=== PATIENT | female | born 1940 | race Caucasian/White ===

== ENCOUNTER 2020-11-22 09:00 | Observation (INO) | payer MEDICARE, OTHER ==
[~2020-11-22] VITALS: Ht 157.5 cm; Wt 78.2 kg
[~2020-11-22 09:00] MED LIST: ASPIRIN EC325 MG PO; BRIMONIDINE TART5 ML OPTH; CEPHALEXIN500 MG PO; DOXYCYCLINE MO100 M1 PO; FUROSEMIDE40 MG PO; LETROZOLE2.5 MG PO; METOPROLOL SUCC25 MG PO; NORCO 5-325 TA1 EACH PO; PERCOCET 5-3251 EACH PO; POTASSIUM CHLO10 MEQ PO; TRAVATAN Z5 ML OPTH; ULTRAM50 MG PO; VITAMIN D31000 UNIT PO
[2020-11-22] MEDS ORDERED: VITAMIN A AND1 EACH PO (09:22)
--- NOTE | 2020-11-22 15:48 | NUR ---
11/22/20 1548 Ani Betancur 1529-PATIENT ARRIVED TO PACU ON 6L MASK NONAROUSABLE. RR EVEN. ORAL AIRWAY IN PLACE. PATIENT HAS DRESSING TO LEFT NECK AND LEFT BREAST CDI. [address] AFIB HR 160'S. BRUISING TO LEFT EYE. 1530-PATIENT OPENING EYES ORAL AIRWAY REMOVED BY PORSHA MANTILLA. 1535-PATIENT REACHING FOR BLANKETS AND MASK. PATIENT DISORIENTED. ORIENTED TO PACU. PATIENT WANTING TO SIT UP. HOB ELEVATED PATIENT BURPING. PORSHA MANTILLA GAVE ESMOLOL FOR HR 160'S-170'S. PATIENT NAUSEATED "IM GONNA THROW UP" PATIENT MEDICATED PER EMAR WITH ZOFRAN IVP. NEW ORDER RECEIVED FROM PORSHA TO GIVE METOPROLOL 5 MG IVP PRN EVERY 15MIN X2 FOR HR GREATER THAN 120. ALSO RECEIVED ORDER FOR INAPSINE. 1545-PATIENT ON 2L NC AWAKE ORIENTED X3. HR DECREASED TO 111 AFIB.
--- NOTE | 2020-11-22 16:40 | NUR ---
ARRIVES FROM PACU ON CART, ASSIST TO BED. REMAINS ON O2 2L/MIN PER NASAL CANULA. DECREASED TO 1 LITER/MIN DUE TO O2 SATS 98%. SCD'S IN PLACE AND TURNED ON. ASSESSMENT COMPLETED. MASTECTOMY INCISION NOTED TO HAVE APPROXIMATELY 5 CM EXPOSED, GAUZE PLACED OVER SITE AND SECURED WITH SILK TAPE. MODERATE AMOUNT OF DRAINAGE TO MEDIAL HANY DRAIN SITE. TUBING STRIPPED.
--- NOTE | 2020-11-22 17:21 | NUR ---
TELEMETRY APPLIED, TACHYCARDIC WITH RATES UP TO 138, IRREGURLAR RATE, HISTORY OF A-FIB. DR. ZENG NOTIFIED. TELEPHONE ORDERS DR. ZENG/ Pamella PISANO RN, TO GIVE METOPROLOL 5MG IV X1 NOW, STRIP TUBING FOR LEAKING DRAIN AND COVER EXPOSED AREA OF INCISION WITH GAUZE.
--- NOTE | 2020-11-22 18:46 | NUR ---
PT SITTING UP IN BED EATING DINNER. TELE SHOWED HR FROM 130-187, DR ZENG ON FLOOR. GIVEN PRN LOPRESSOR AND RESTARTED ON PO LOPRESSOR.
--- NOTE | 2020-11-22 18:48 | NUR ---
SITTING UP TO EAT SUPPER, HEARTRATE INCREASES TO 190'S. DR. ZENG ON FLOOR, AWARE, SEE ORDERS.
--- NOTE | 2020-11-22 19:10 | NUR ---
IN ROOM FOR REPORT, PT HAS VISITORS IN THE ROOM. SHE DENIES NEEDS AT THIS TIME. CALL LIGHT IS CLOSE.
--- NOTE | 2020-11-22 20:03 | NUR ---
TOOK LAST SET OF PT'S VS. SHE DENIES NEEDS AT THIS TIME AND HAS VISITORS IN THE ROOM. CALL LIGHT IS CLOSE.
--- NOTE | 2020-11-22 22:45 | NUR ---
V/S AND I&O'S TAKEN AND CHARTED. BLAKES DRAINAGE X2 EMPTIED. CHANGED TELE STICKER. 1 PA TO THE BATHROOM AND BACK TO BED. PRIMARY RN WAS WITH PATIENT.
--- NOTE | 2020-11-22 23:05 | NUR ---
COMPLETED ASSESSMENT AND ADMINISTRATION OF EVENING MEDICATIONS. ZACK NGO IN ROOM ASSISITING WITH VS AND EMPTYING DRAINS. PT TAUGHT DRAIN CARE BY BOTH OF US AND STATES "YOU WILL NEED TO SHOW MY DAUGHTER". PT SAYS HER DAUGHTER WILL BE BACK IN TOMORROW. WHILE PT UP TO RESTROOM HER HEART RATE JUMPED TO HIGH 172 AND JUMPED AROUND. PT DENIES ANY SX WITH INCREASED HR. SHE IS BACK IN BED AND HR DECREASED BACK TO LOWER 100'S. PT REPORTS PAIN AT 1/10 AT THIS TIME. SHE HAS SCDS IN PLACE AND REFUSED HEPARIN INJ. PT UP TO VOID 125MLS BUT STATES SHE DOESN'T FEEL THE URGE TO GO. PT DENIES FURTHER NEEDS AT THIS TIME. CALL LIGHT IS CLOSE.
--- NOTE | 2020-11-23 01:35 | NUR ---
PT IS RESTING WITH EYES CLOSED RR IS EVEN AND NONLABORED. CALL LIGHT IS CLOSE. HR 84.
--- NOTE | 2020-11-23 02:49 | NUR ---
IN ROOM TO ADMINISTER LOPRESSOR AND CHECK PT'S VS. SHE DENIES PAIN AT THIS TIME AND DENIES FURTHER NEEDS. CALL LIGHT IS CLOSE.
--- NOTE | 2020-11-23 03:00 | NUR ---
PT DOES NOT FEEL THE NEED TO VOID, SINTA WOMEN SPECIALIST BLADDER SCANNED AND GOT 293MLS. PT IS MAKING URINE AND LUNGS SOUND CLEAR. WILL HAVE PT GET UP IN AM TO VOID.
--- NOTE | 2020-11-23 04:14 | NUR ---
PT IS RESTING WITH EYES CLOSED, RR IS EVEN AND NONLABORED. CALL LIGHT IS CLOSE.
--- NOTE | 2020-11-23 05:51 | NUR ---
IN ROOM TO ADMINISTER MORNING MEDICATIONS. PT REPORTS 0/10 PAIN AND DOES NOT WANT THE TYLENOL. SHE DENIES FURTHER NEEDS. AT THIS TIME CALL LIGHT IS CLOSE.
--- NOTE | 2020-11-23 07:15 | NUR ---
SHIFT REPORT FROM NURSE LEAHY. PT ASLEEP IN BED WITH EYES CLOSED. EVEN BREATHING NOTED. NO APPARENT SIGNS OF DISTRESS. CALL LIGHT WITHIN REACH.
--- NOTE | 2020-11-23 08:12 | NUR ---
PATIENT AWAKE IN BED SITTING UP. BREAKFAST ORDERED. CALL LIGHT WITHIN REACH NO FUTHER NEEDS AT THIS TIME.
--- NOTE | 2020-11-23 09:14 | NUR ---
PATIENT I&O'S DOCUMENTED AND VITALS SIGNS. PATIENT SITTING IN CHAIR CALL LIGHT WITHIN REACH NO FUTHER NEEDS AT THIS TIME.
--- NOTE | 2020-11-23 09:23 | NUR ---
ASSESSMENT COMPLETE. PT REFUSING SQ HEPARIN. PT EDUCATED ON INCREASED RISK OF CLOTS POST OP, HOWEVER PT IS ADAMANT ABOUT NOT WANTING HEPARIN DOSE. HANY DRAINS HAVE MINIMAL -MODERATE AMOUNT OF SERO TO SANGUINOUS DISCHARGE. INCISION BANDAGE SOME SHADOWING ALTHOUGH INTACT. SUPRACLAVICULAR DRESSING CDI. BLE EDEMA. SCDS ON. TELE READING AFIB RHYTHM AT 90-100. PT REPORTS NO PAIN. ENCOURAGED PT TO AMBULATE TODAY. FRESH ICE PROVIDED. CALL LIGHT WITHIN REACH.
--- NOTE | 2020-11-23 09:30 | NUR ---
Pt lives in a 1 story home with her spouse. Daughter is staying this week and will return home on Saturday. Lives with her spouse Mesfin who will assist her as needed. Pt states concern as she has drains in and wanted to know if she can have HH as she did in the past when she had drains. Informed I will leave a note for Dr. Watters. Pt is milagros yan to dc today. Pt and family deny needs and will assist pt.
--- NOTE | 2020-11-23 10:41 | NUR ---
TRIAL WALKING HEART REGULATION; PT AMBULATED IN HALLS WITH SBA. PT HR FLUCTUATED BETWEEN 130-170. PT REPORTS FEELING "A LITTLE" SHORT OF BREATH AND FEELING THE HR ELEVATED. PT ALSO REPORTS THAT SHE WAS "WALKING PRETTY FAST". DR ZAMBRANO INFORMED. PT TO REMAIN HERE LONGER TO ADJUST MEDICATIONS.
--- NOTE | 2020-11-23 10:59 | NUR ---
EDUCATION TO PT'S DAUGHTER ON HOW TO EMPTY HANY DRAINS. HANY#1 5CC SANGUINOUS DRAINAGE WITH SOME CLOTTING. HANY#2 18CC SANGUINOUS FLUID DRAINED.
--- NOTE | 2020-11-23 11:22 | NUR ---
CALLED CANCER CLINIC AND TALKED TO REYNALDO REGARDING BREAST CARE STUFF. SHE WILL BE DOWN AT NOON TO SHOW PT HOW TO PUT ON HER GARRETT. PT AWARE.
--- NOTE | 2020-11-23 12:04 | NUR ---
IN ROOM TO SL PT. FAMILY STILL IN ROOM. PT EATING LUNCH; REQUESTS DECAF TEA INSTEAD OF REGULAR TEA WHICH IS PROVIDED. NO FURTHER NEEDS AT THIS TIME.
--- NOTE | 2020-11-23 14:43 | NUR ---
VITAL SIGNS DOCUMENTED BY THE RN AND I&O'S. CALL LIGHT WITHIN REACH NO FUTHER NEEDS AT THIS TIME.
--- NOTE | 2020-11-23 18:02 | NUR ---
PATIENT TALKING TO FAMILY IN THE ROOM I&O'S DONE BY SPIKE MAKER AND VITAL SIGNS DONE BY THE RN. CALL LIGHT WITHIN REACH NO FUTHER NEEDS AT THIS TIME.
--- NOTE | 2020-11-23 19:10 | NUR ---
IN ROOM FOR REPORT, PT IS AWAKE IN BED. SHE DENIES NEEDS AT THIS TIME. CALL LIGHT IS CLOSE.
--- NOTE | 2020-11-23 20:00 | NUR ---
in with rn to get vitals, ice water topped off no further needs this time
--- NOTE | 2020-11-23 20:17 | NUR ---
IN ROOM TO ASSESS PT AND ADMINISTER MEDICATIONS. PT DENIES PAIN AT THIS TIME OTHER THAN A LITTLE SORE THROAT. DRAIN #1 KEEPS INFLATING, FIXED IT TO SUCTION AGAIN. VS TAKEN AND ENTERED AND PT DENIES FURTHER NEEDS AT THIS TIME. CALL LIGHT IS CLOSE.
--- NOTE | 2020-11-23 22:35 | NUR ---
ADMINISTERED THE REST OF PT'S EVENING MEDICATIONS. SHE REPORTS A SORE THROAT BUT DENIES OTHER PAIN. TAUGHT PT DRAIN CARE AND EMPTIED HANY DRAINS. SHE DENIES FURTHER NEEDS AT THIS TIME. PT STATES SHE JUST VOIDED BEFORE SHIFT CHANGE AND DOES NOT WANT TO TRY GOING AT THIS TIME. WILL REASSESS AT 0200 WHEN PT'S NEXT MEDS ARE DUE.
--- NOTE | 2020-11-24 01:02 | NUR ---
PT IS RESTING WITH EYES CLOSED, RR IS EVEN AND NONLABORED W/ HR AT 65 AT THIS TIME. CALL LIGHT IS CLOSE.
--- NOTE | 2020-11-24 02:05 | NUR ---
IN TO HAVE PT UP TO VOID, SBA TO THE TOILET, PT BACK TO BED AND BP MEASUREMENT TAKEN FOR RN, ICE CHIPS TOPPED OF AT THIS TIME, NO FURTHER NEEDS
--- NOTE | 2020-11-24 02:09 | NUR ---
IN ROOM TO ADMINISTER MEDS. ELDA RIVERA ASSISTED PT TO THE RESTROOM AND BACK TO BED. WHILE PT WAS UP HER HR DID INCREASE BUT THE HIGHEST PT'S HR GOT WAS ABOUT 115. SHE DENIES SOB, PAIN AND LIGHT HEADEDNESS. PT DENIES FURTHER NEEDS AT THIS TIME. CALL LIGHT IS CLOSE.
--- NOTE | 2020-11-24 03:50 | NUR ---
PT IS RESTING WITH EYES CLOSED, TELE HR CURRENTLY 56. LOWESTS THIS RN HAS SEEN IT WAS 53 WHILE SLEEPING.
--- NOTE | 2020-11-24 04:49 | NUR ---
PT IS RESTING WITH EYES CLOSED, RR IS EVEN AND NONLABORED. HR BRIEFLY DROPPED TO 36 IN A-FIB BUT QUICKLY RETURNED TO 40'S TO 60'S.
--- NOTE | 2020-11-24 07:00 | NUR ---
IN ROOM TO ADMINISTER MEDICATIONS AND TAKE VS &I&O'S. PT REPORTS 5/10 PAIN THIS MORNING IN L SHOULDER AND UPPER ARM. PT DENIES FURTHER NEEDS AT THIS TIME. CALL LIGHT IS CLOSE.
--- NOTE | 2020-11-24 07:29 | NUR ---
SHIFT REPORT FROM NURSE LEAHY. PT APPEARS TO BE SLEEPING; EYES CLOSED, EVEN BREATHING NOTED. TELE HR 60S. NO APPARENT SIGNS OF DISTRESS. CALL LIGHT WITHIN REACH.
--- NOTE | 2020-11-24 08:33 | NUR ---
ASSESSMENT COMPLETE. MORNING MEDS GIVEN. PT CONTINUES TO REFUSE HEPARIN INJECTION. PT REQUESTS PRN STOOL SOFTENER; WILL DISCUSS WITH DR ZENG. BREAST BANDAGE SCANT DRAINAGE; UNCHANGED FROM YESTERDAY. CLAVICULAR BANDAGE CDI. HANY DRAINS SEROUS COLORED DISCHARGE; MINIMAL. BLE EDEMA CONTINUES. TELE HR 70-80S. PT GOT UP TO TOILET. HR WENT TO 105. PT FINISHED ENTIRE BREAKFAST. ON TOILET NOW. NO FURTHER NEEDS AT THIS TIME.
--- NOTE | 2020-11-24 10:00 | NUR ---
Pt seen by Dr. Watters. Notified does not feel pt will require Home Health. Spoke with pt and she cont. to plan on dc to home with daughter and spouse. States she is just hesitant, she also feels she will be ok without HH. Reminded if she has issues at home, HH can always be ordered through her PCP or Dr. Watters.
[2020-11-24] MEDS ORDERED: METOPROLOL SUCC50 MG PO (10:46)
[2020-11-24] MEDS ORDERED: DILTIAZEM 24HR180 M1 PO (10:46)
[2020-11-24] MEDS ORDERED: ACETAMINOPHEN500 MG PO (10:56)
[2020-11-24] MEDS ORDERED: MOTRIN IB200 MG PO (10:56)
--- NOTE | 2020-11-24 11:20 | NUR ---
IN TO CHECK ON PT. PT IS SITTING UP BEDSIDE. DR ZENG HAD REMOVED GAUZE AND ACTICOAT DRESSING. TELE LEADS REMOVED.
--- NOTE | 2020-11-24 11:39 | NUR ---
IN ROOM FOR DISCHARGE EDUCATION. PT'S IN ROOM WELL. PT SITTING UP IN BED AND TOOK PART EDUCTAION. PT WILL EAT LUNCH BEFORE SHE GOES HOME.
--- NOTE | 2020-11-24 12:35 | NUR ---
PT WHEELED TO FRONT LOBBY DOOR AND HELPED INTO HER DAUGHTER'S CAR BY THIS NURSE. PT'S ASSISTING WELL. VSS. PT'S BELONGINGS GIVEN TO PT. PHARMACY HAD GONE OVER MEDS WITH PT. IV REMOVED INTACT.
--- NOTE | 2020-11-25 17:32 | OR ---
[facility] [address], [place] [address] Signed DATE OF OPERATION: 11/22/2020 SURGEON: Gladys Zeng MD PREOPERATIVE DIAGNOSES: 1. 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 2. Left supraclavicular adenopathy. POSTOPERATIVE DIAGNOSES: 1. 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 2. Left supraclavicular adenopathy. PROCEDURE: 1. Excision of left supraclavicular lymph node. 2. Left modified radical mastectomy (a total mastectomy with excision of remaining lymph node). ANESTHESIA: General endotracheal, Cristi Saamno CRNA. INDICATION: This 80-year-old white woman is a patient recently of Dr. Lorenz as well as JOVANY Duran. She was diagnosed with breast cancer in the mid 90s and had recurrence in the left breast of breast cancer approximately 5 years ago. As her original operation included a lumpectomy, chemotherapy, radiation therapy, and at least partial axillary dissection of lymph nodes. I had recommended upon her recurrent breast cancer in the upper outer aspect 5 years ago to undergo total mastectomy. She declined and preferred rather to have a partial mastectomy. This was done by Dr. Marlena León in [place], [place]. She did not have adjuvant radiation or chemotherapy, though has been on an oral agent since that time. She recently returned to see Dr. Lorenz in followup, where she was said to have multiple nodules of the skin and dermis, and a very deformed breast highly suggestive of recurrent breast cancer. Additionally, a palpable left supraclavicular lymph node was noted that is suspicious. The patient does not have arm edema at this time. I did perform a biopsy in the office setting under local anesthesia a few days previously, which showed an obvious recurrent metastatic breast cancer. Electronically Signed By: GLADYS ZENG MD 11/25/20 0803 PATIENT NAME: SOPHIE BALDERAS OPERATIVE REPORT DATE OF : 44 REPORT #: [id number] PHYSICIAN: GLADYS ZENG MD PCP: BENITO LORENZ MD REPORT IS CONFIDENTIAL AND NOT TO BE RELEASED WITHOUT AUTHORIZATION [facility] [address], [place] [address] Signed She is admitted at this time to undergo left modified radical mastectomy (total mastectomy with axillary dissection as able). Additionally, through separate incision, left supraclavicular lymph node biopsy is anticipated. FINDINGS: The left supraclavicular lymph node was approximately 2.5 cm in size. It was firm, but not hard. Complete excision was undertaken. As regard to the breast, dermal metastases were rather extensive requiring much wider than usual resection of skin in continuity with the breast tissue. This was accomplished safely and with elevation of superior and inferior flaps, the wound could be closed fully without need for grafting or elaborate measures otherwise. Two drains were placed. As regards, the tumor itself was palpable within the dense breast and there were some residual lymph nodes associated with the axillary tissue, though there were clips from prior axillary intervention also noted. She tolerated the procedure well overall, though did have atrial fibrillation throughout the procedure as usual and did have rapid ventricular response to it in recovery room, which was managed with medications effectively. DESCRIPTION OF PROCEDURE: The patient was brought to the operating room, given a general endotracheal anesthetic. Preoperative antibiotics were given, sequential compression device stockings used, and heparin subcutaneously administered. The patient has a very large pendulous right breast and the left breast was smaller, but definitely quite obviously involved with malignant neoplasm of both parenchyma and skin. There was no sign of generalized erythema or inflammation proper otherwise. After sterile preparation with a chlorhexidine solution on the left chest wall and arm and so forth including the supraclavicular space. The area was sterilely draped and plans were made for excision of the left supraclavicular lymph node first. A transverse incision was made along the line of skin tension, dissection carried through the dermis with blunt and electrocautery dissection ultimately palpating well the pathologic lymph node which was not fixed but rather mobile, but in the deep subcutaneous space adjacent to the muscle of the neck and various neurologic structures. A single 2-0 silk suture was passed through the nodule, which allowed for excision of the nodule in continuity with the suture. Electrocautery was used for hemostasis well. The wound was irrigated with sterile water for its tumor lytic effect. The specimen was passed for permanent pathology. The wound was closed in layers with interrupted 2-0 Vicryl and later running subcuticular 3-0 Vicryl. Steri-Strips were applied as was a silver sponge dressing (Acticoat type). The attention was then turned towards mastectomy proper. As there were multiple metastatic lesions within the skin distributed most dominantly in Electronically Signed By: GLADYS ZENG MD 11/25/20 1732 PATIENT NAME: SOPHIE BALDERAS OPERATIVE REPORT DATE OF : 44 REPORT #: [id number] PHYSICIAN: GLADYS ZENG MD PCP: BENITO LORENZ MD REPORT IS CONFIDENTIAL AND NOT TO BE RELEASED WITHOUT AUTHORIZATION [place] [id number] Signed the medial aspect, wide excision would be required to provide a clinically negative margin based on recurrent cancer. The wide resection included all the pathologic findings of the skin, leaving only normal tissue back at least grossly. An incision was made with a #15 blade and carried deeply with electrocautery. Superior and inferior flaps were developed and mostly using electrocautery. The breast was excised from medial to lateral direction using electrocautery and blunt dissection. Axillary contents were excised in continuity with the axillary tail of Zach. There were a few clips noted in the axilla suggestive of prior sentinel lymph node biopsy. The axillary vein and neurovascular bundles were dissected free excised as much axillary fat with lymph nodes as could be safely accomplished. Clips were applied as necessary for hemostasis as well. A few intercostal brachial neurovascular bundles were clipped and divided as the parenchyma did not accommodate dissection of those freely otherwise. Ultimately, the entire left breast and axillary contents were excised and passed for permanent pathology. Irrigation was undertaken with sterile water for its tumor lytic effect, two separate stab incisions were made allowing for placement of two 10 mm flat Shamar drains, one beneath the flaps and the other in the axilla. The drains were secured to the skin with nylon suture and attached to bulb suction later. Initially, it was uncertain if the edges of the skin would reach to allow for closure of the wound primarily. Superior and inferior dissection was undertaken with electrocautery, mobilizing the superior flaps, certainly the superior one up to and including the area of the clavicle and inferiorly well down onto the abdominal wall including the rectus abdominis muscular compartment. Traumatic towel clamps were used to reapproximate the skin initially and good viability was noted particular medially and laterally and generally speaking in the midportion. Interrupted 2-0 Vicryl was used to reapproximate the dermis. The skin was closed with running subcuticular 3-0 Vicryl. Steri-Strips were applied as was an Acticoat dressing. The drains had been set up to bulb suction shows serosanguineous fluid. The patient was ultimately extubated and transferred to the recovery room in good condition having suffered no complications. Sponge, needle, and instrument counts were correct x3. MD GUNNER Shell/MICKIL /[id number] Electronically Signed By: GLADYS ZENG MD 11/25/20 1732 PATIENT NAME: SPOHIE BALDERAS OPERATIVE REPORT DATE OF : 44 REPORT #: [id number] PHYSICIAN: GLADYS ZENG MD PCP: BENITO LORENZ MD REPORT IS CONFIDENTIAL AND NOT TO BE RELEASED WITHOUT AUTHORIZATION [facility] [address] [facility] [place] [address] Signed Copies: ~ Electronically Signed By: GLADYS ZENG MD 11/25/20 1732 PATIENT NAME: SOPHIE BALDERAS OPERATIVE REPORT DATE OF : 44 REPORT #: [id number] PHYSICIAN: GLADYS ZENG MD PCP: BENITO LORENZ MD REPORT IS CONFIDENTIAL AND NOT TO BE RELEASED WITHOUT AUTHORIZATION
--- NOTE | 2020-11-25 17:32 | DS ---
[facility] [address] [place], [place] [address] Signed ADMISSION DATE: 11/22/2020 DISCHARGE DATE: 11/24/2020 REASON FOR ADMISSION: This 80-year-old white woman is a patient of Kiesha Rebolledo and additionally Dr. Benito Lorenz. She is admitted to undergo left mastectomy related to a second recurrence of breast cancer in the left upper outer quadrant. There were dermal metastases noted as well. Her original malignancy was in 1988 at which time she underwent a lumpectomy as well as chemo and radiation therapy. Five years ago she had a local recurrence in the left breast and elected elsewhere to undergo lumpectomy alone. Her recurrence now does show signs of probable metastatic disease to the supraclavicular lymph node area. She is admitted to undergo a left mastectomy, left axillary lymphadenectomy as possible and excision separately of the left supraclavicular lymph node. PHYSICAL EXAMINATION: GENERAL: Elderly white woman who has atrial fibrillation. Trachea is midline. CHEST: Clear. HEART: Irregularly irregular. There is no murmur. The right breast is very pendulous and is normal. Axilla was normal on the left side. There is a pendulous breast with marked deformity from prior interventions. There is no palpable axillary adenopathy. No specific arm edema. A left supraclavicular lymph node is suspicious and the left breast shows multiple skin nodules, one of which was biopsied recently and confirmed to be infiltrating ductal carcinoma. HOSPITAL COURSE: On November 22, 2020, she underwent left total mastectomy with excision of residual axillary lymph node tissue. Through separate incision, she underwent excision of a left supraclavicular lymph node which was suspicious for metastatic disease as well. She tolerated the operation well with blood loss not particularly excessive. Two drains were placed. She was noted in recovery room to have atrial fibrillation with rapid ventricular response requiring administration of metoprolol. She was admitted for further observation as planned, but with telemetry as well. Consultation was undertaken with Dr. Levy, hospitalist, regarding her rapid ventricular response to underlying atrial fibrillation. This was managed with increasing doses of metoprolol and ultimately Cardizem, which has allowed for good control of her heart rate into the 65-70 range and with good tolerance. By time of discharge she is ambulating without initiating significant tachycardia. She understands how to use her drains to measure each and maintain suction on the drains. Electronically Signed By: GLADYS ZENG MD 11/25/20 1733 PATIENT NAME: SOPHIE BALDERAS DISCHARGE SUMMARY DATE OF : 44 REPORT #: [id number] PHYSICIAN: GLADYS ZENG MD PCP: BENITO LORENZ MD REPORT IS CONFIDENTIAL AND NOT TO BE RELEASED WITHOUT AUTHORIZATION [facility] [address] [place] [id number] Signed Her wound appears to be healing well though wide resection of skin was required and closure was under some amount of tension. It is anticipated she will be seen in 7 to 10 days, likely able to have one or more of the drains removed. DISCHARGE MEDICATIONS: 1. Metoprolol extended release 50 mg p.o. at bedtime. 2. Diltiazem 24 hour CD 180 mg p.o. at bedtime. 3. Tylenol 1 g p.o. q.6 hours as needed for pain #60 refill one. 4. Motrin 600 mg p.o. q.6 hours p.r.n. pain #60. She will continue with the usual medication of aspirin 325 mg p.o. daily. 5. Letrozole 2.5 mg p.o. daily. 6. Brimonidine 5 mL drops for the eye as needed for pain. 7. Vitamin D3 1000 units daily. 8. Vitamin A and D one capsule p.o. daily. 9. She will discontinue Lasix 40 mg daily, metoprolol 25 mg extended release daily, and potassium chloride 10 meq p.o. daily. DISCHARGE DIAGNOSES: 1. Second recurrence of left breast cancer with multiple dermal metastases, status post left total mastectomy, axillary dissection and excision through separate incision of left supraclavicular lymph node. 2. Atrial fibrillation. 3. Atrial fibrillation with rapid ventricular response postop. (Resolved and controlled). FOLLOWUP PLAN: She is going to be seeing Kiesha Rebolledo in the near future who is anticipated to set up the consideration for Holter monitoring. Dr. Levy has discussed this with her office. She will see me back in 7 to 10 days for drain removal most likely. She will additionally be seeing Dr. Lorenz in the near future additionally. MD GUNNER Shell/GENESIS /[id number] Electronically Signed By: GLADYS ZENG MD 11/25/20 1732 PATIENT NAME: SOPHIE BALDERAS DISCHARGE SUMMARY DATE OF : 44 REPORT #: [id number] PHYSICIAN: GLADYS ZENG MD PCP: BENITO LORENZ MD REPORT IS CONFIDENTIAL AND NOT TO BE RELEASED WITHOUT AUTHORIZATION [facility] [address] [place] [address] Signed cc: MD David Mendoza MD Danielle Addleman, PA-C Copies: BENITO LORENZ MD,DAVID LI MD ~ Electronically Signed By: GLADYS ZENG MD 11/25/20 1732 PATIENT NAME: SOPHIE BALDERAS DISCHARGE SUMMARY DATE OF : 44 REPORT #: [id number] PHYSICIAN: GLADYS ZENG MD PCP: BENITO LORENZ MD REPORT IS CONFIDENTIAL AND NOT TO BE RELEASED WITHOUT AUTHORIZATION
--- NOTE | 2020-11-30 09:09 | PATH ---
[facility] [address] [facility] [place], [place] [address] Signed SPECIMEN(S): A LEFT SUPRACLAVICULAR LYMPH NODE SPECIMEN(S): B LEFT BREAST, AXILLARY CONTENT REMNANT SPECIMEN SOURCE: A. LEFT SUPRACLAVICULAR LYMPH NODE B. LEFT BREAST, AXILLARY CONTENT REMNANT CLINICAL HISTORY: Local recurrence of malignant breast tumor. Stitch angeles axillary content remnant. FINAL PATHOLOGIC DIAGNOSIS: A. 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 - Size of metastatic deposit: 22 mm in greatest dimension. - Extra gabby extension: Not identified. B. 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 - Histologic type: Invasive carcinoma of no special type (ductal). - Histologic grade ([place] histologic score): - Glandular (acinar)/tubular differentiation: Score 3. - Nuclear pleomorphism: Score 3. - Mitotic rate: Score 3. - Overall grade: Grade 3 (total score 9/9). - Ductal carcinoma in situ (DCIS): Not identified. - Tumor extension: - Skin: Satellite skin foci of invasive carcinoma are present. - Skeletal muscle: Skeletal muscle is free of carcinoma. - Margins: - Invasive carcinoma margins: Uninvolved by invasive carcinoma. - Distance from closest margin: > 1 cm from all margins (superior, inferior, deep). - Regional lymph nodes: Involved by tumor cells (ipsilateral supraclavicular node, specimen A). - Number of lymph nodes with macrometastasis: 1. - Size of largest metastatic deposit: 22 mm. - Extra gabby extension: Not identified. - Total number of lymph nodes examined: 1. PATIENT NAME: SOPHIE PETERSEN PATHOLOGY DATE OF : 44 REPORT #: [id number] PHYSICIAN: ALEJANDROQuintiles PATHOLOGY PCP: BENITO LORENZ MD REPORT IS CONFIDENTIAL AND NOT TO BE RELEASED WITHOUT AUTHORIZATION [facility] [address] [place], [place] [address] Signed - Number of sentinel nodes examined: 0. - Treatment effect in the breast: No known pre-surgical therapy. - Lymphovascular invasion: Present. - Dermal lymphovascular invasion: Present, extensive. - Ancillary studies: Please refer to previously performed testing ([id number], interpreted as ER negative, MD negative, HER2 negative by IHC, and Ki-67 proliferation index of 84.6%. - Additional findings: Post surgical site changes, radiation changes. - Pathologic stage classification (pTNM, AJCC 8th ed.): r pT4b pN3c. COMMENT: The clinical history of left breast invasive carcinoma status post lumpectomy in 1997 with recurrence in 2015 status post lumpectomy and radiation therapy is noted. The left mastectomy specimen contains a 5.7 cm tumor as well as multiple satellite foci of invasive carcinoma within the skin associated with extensive dermal lymphovascular invasion. Areas of radiation atypia and post-surgical site changes are identified within the breast, coinciding with the history of prior lumpectomies and radiation atypia. No residual axillary lymph nodes were identified grossly. As part of [facility]' Quality Improvement Program, this case was reviewed by another member of our pathology staff. NAL:cml:C1NR MICROSCOPIC EXAMINATION: Histologic sections of all submitted blocks are examined by light microscopy. Immunohistochemical stains (with appropriately staining controls) were performed: B2. CD31 highlight the multiple foci of tumor within dermal lymphovascular spaces; SMMHC and p63 confirm the absence of definitive DCIS in that section. These findings, together with the gross examination, support the pathologic diagnosis. GROSS DESCRIPTION: Two specimens are received in two containers, labeled "Sophie Petersen." A. The specimen, labeled "Sophie Petersen," and designated on the requisition "left subclavicular lymph node," is received in formalin and consists of 3.5 x 2.6 x 1.5 cm portion of yellow-nugent adipose tissue that contains one pink possible lymph node that is a 2.6 x 1.8 x 0.9 cm. PATIENT NAME: SOPHIE PETERSEN PATHOLOGY DATE OF : 44 REPORT #: [id number] PHYSICIAN: MELVIN LUNA PCP: BENITO LORENZ MD REPORT IS CONFIDENTIAL AND NOT TO BE RELEASED WITHOUT AUTHORIZATION [facility] [address] [place] [id number] Signed The lymph node is grossly positive for tumor (2.2 x 1.8 x 0.8 cm), which occupies approximately 80% of the lymph node. Approximately dairy supplies sales representative sections are submitted in cassette (A1). FB (under the direct supervision of a pathologist) B. The specimen, labeled "MH," and designated on the requisition "left breast, axillary contents remnant," is received in a low amount of formalin and consists of 1040 g, 17.6 18.4 x 5.4 cm mastectomy specimen that is oriented with a suture at the axillary content remnant. A portion of the specimen, a 9.2 x 6.1 x 0.8 cm piece, is ragged and loosely attached by three strands. It is assumed that the surface of the piece that is parallel to the posterior surface is posterior and the remaining surface is superior. The assumedly posterior surface is inked black and the assumedly superior surface is inked blue. (See image). The anterior portion of the specimen contains a 26.1 x 21.1 cm nugent skin segment. The skin segment has multiple, raised, focal, nugent to purple nodules from 0.2 up to 2.5 cm in greatest dimension. The nodules are surrounded by wrinkled, slightly purple discolored skin. The majority of the nodules are in two clusters. The first cluster is 3.6 x 3.2 cm and 1.2 cm from the nearest skin margin, superior. The second cluster is 20.2 x 11.2 cm, and 0.6 cm from the nearest margin, inferior. The second cluster contains the ill-defined, nodular, pink-nugent, 6.2 x 4.5 cm areola, and a 1.5 x 1.5 x 0.7 cm firm, nugent nipple. Additionally within the second cluster is a 1.7 x 0.7 cm nodular area containing multiple black synthetic sutures and 2.6 cm from the nearest margin, superior. An additional discrete mass/lesion is not grossly identified on the skin surface. The specimen is inked as follows: Superior aspect of the specimen = blue; inferior aspect of the specimen = green; posterior = black. The specimen is sectioned from [id number] into 18 slices to reveal an ill-defined, nugent-white, indurated, 5.7 x 3.7 x 3.2 cm lesion (slice 8-13) that is directly beneath and grossly appears to involve the nipple. Additionally, the lesion grossly appears to involve the overlying skin. The lesion is 2.7 cm from the inferior margin, 2.7 cm from the deep margin, and 9.4 cm from the superior margin. The lesion has many fibrous spiculations and focal cavities containing nugent-white, thick, opaque pasty material and up to 1.3 cm in greatest dimension. An additional parenchymal mass/lesion PATIENT NAME: SOPHIE PETERSEN PATHOLOGY DATE OF : 44 REPORT #: [id number] PHYSICIAN: MELVIN LUNA PCP: BENITO LORENZ MD REPORT IS CONFIDENTIAL AND NOT TO BE RELEASED WITHOUT AUTHORIZATION [facility] [address] [place], [place] [address] Signed is not grossly identified. The remaining parenchyma is comprised of yellow fibrofatty and nugent-white fibroglandular tissue. Fibroglandular tissue comprises approximately 5% of the remaining parenchyma. The lateral portion of the specimen is palpated for lymph nodes and no lymph nodes are grossly identified. Security Rover sections are submitted as follows: B1 nipple areolar complex B2-B3 first cluster to nearest superior margin (the sections are taken prior to cross-sectioning and the underlying tissue is inked red; (slices 6-7) B4-B5 second cluster to nearest superior margin (sections are taken prior to cross-sectioning and the underlying tissue is inked yellow; (slices 1-4) B6-B7 second cluster to nearest deep inferior margin (sections are taken prior to cross-sectioning and the underlying tissue is inked yellow (slices 1-4) B8 lesion to skin and areola (slice 8) B9 lesion to normal parenchyma (slice 9) B10 lesion cavity (slice 11) B11 nearest deep margin to lesion (slice 9) B12 nearest inferior margin to lesion (slice 9) B13 nearest superior margin to lesion (slice 9) B14 lesion with fibrous spiculations (slice 8) B15 lesional fibrous spiculations to nearest margin, inferior, 1.4 cm away piece (slice 11) B16-B20 second cluster nodular areas of skin (slice 12, 7, 6, 4, 3 respectively; B20 contains the sutured nodular area) B21 first cluster nodular areas (slice 6) B22-B23 dairy supplies sales representative of remaining parenchyma (slice 5 and 17 respectively) Cold ischemic time: Grossly indeterminate due to lack of information Formalin fixation time: Approximately 52 hours Note: please see images AI (under the direct supervision of a pathologist) The Gross Description was prepared using a voice recognition system. The report was reviewed for accuracy; however, sound-alike word errors, addition and/or deletions may occur. If there is any question about this report, please contact Client Services. ADDITIONAL NOTES: Immunohistochemical and/or in situ hybridization studies were performed on this case with the appropriate positive controls that react as expected. This test was developed and its performance characteristics determined by [facility]. It has not been cleared or PATIENT NAME: SOPHIE PETERSEN PATHOLOGY DATE OF : 44 REPORT #: [id number] PHYSICIAN: MELVIN LUNA PCP: BENITO LORENZ MD REPORT IS CONFIDENTIAL AND NOT TO BE RELEASED WITHOUT AUTHORIZATION [address] [address] Signed approved by the U.S. Food and Drug Administration. The FDA has determined that such clearance or approval is not necessary. This test is used for clinical purposes. It should not be regarded as investigational or for research. [facility] is certified under the Clinical Laboratory Improvement Amendments of 1988 (CLIA) as qualified to perform high complexity clinical laboratory testing. This assay has not been validated for specimens that have been decalcified. PERFORMING LABORATORY: The technical component was performed by [facility], [address] [place] [address] (Curriculum Developer: Anahy Wilson MD; CLIA# [id number]).Professional [place] [address] (CLIA# [id number]). Diagnostician: Ember Reeves MD Pathologist Electronically Signed 11/30/2020 Copies: ~ PATIENT NAME: SOPHIE PETERSEN PATHOLOGY DATE OF : 44 REPORT #: [id number] PHYSICIAN: MELVIN PATHOLOGY PCP: BENITO LORENZ MD REPORT IS CONFIDENTIAL AND NOT TO BE RELEASED WITHOUT AUTHORIZATION
== END 2020-11-24 12:30 | disposition home or self-care (01) ==
LOC: MS 09:00 → DS 09:00 → MS 16:40 → DS 16:41 → MS 16:42
PROVIDERS: ADMIT Surgery; ATTEND Surgery
PROC: 0HTU0ZZ Resection of Left Breast, Open Approach (ICD-10-PCS; principal; 2020-11-22 10:30)
DX: C50.412 Malignant neoplasm of upper-outer quadrant of left female breast (principal); C79.2 Secondary malignant neoplasm of skin; R59.9 Enlarged lymph nodes, unspecified; I48.91 Unspecified atrial fibrillation; I50.22 Chronic systolic (congestive) heart failure; I10 Essential (primary) hypertension; Z88.1 Allergy status to other antibiotic agents; Z88.8 Allergy status to other drugs, medicaments and biological substances; Z92.21 Personal history of antineoplastic chemotherapy; Z92.3 Personal history of irradiation; Z87.891 Personal history of nicotine dependence; Z79.82 Long term (current) use of aspirin
CPT/HCPCS: 00404; 36415; 80048; 80053; 83735; 85025; 88305; 88307; 88341; 88342; 96374; 96375; 96376; G0378; J0690; J1100; J1644; J1790; J1885; J2001; J2370; J2405; J2704; J3010; J3475; J7121; Q9968

== ENCOUNTER 2021-06-05 18:31 | Emergency (ER) | payer MEDICARE, OTHER ==
[~2021-06-05] VITALS: Ht 154.9 cm; Wt 67.6 kg
[~2021-06-05 18:31] MED LIST changes: +ACETAMINOPHEN500 MG PO; +CALTRATE 600 +1 EAC1 PO; +DILTIAZEM 24HR180 M1 PO; +K-TAB ER20 MEQ PO; +METOPROLOL SUCC50 MG PO; +MOTRIN IB200 MG PO; +VITAMIN A AND1 EACH PO
[2021-06-05] MEDS ORDERED: LYNPARZA100 MG PO (18:51)
[2021-06-05] MEDS ORDERED: METOPROLOL SUCC25 MG PO (18:52)
[2021-06-05] MEDS ORDERED: COMBIGAN EYE DRO5 ML OD ×2 (18:54)
== END 2021-06-05 22:30 | disposition home or self-care (01) ==
LOC: ED 18:31
DX: U07.1 COVID-19 (principal); Z85.3 Personal history of malignant neoplasm of breast; Z85.828 Personal history of other malignant neoplasm of skin; Z87.891 Personal history of nicotine dependence; Z88.1 Allergy status to other antibiotic agents; Z79.82 Long term (current) use of aspirin; Z79.899 Other long term (current) drug therapy
CPT/HCPCS: 71045; 80053; 85007; 85025; 99284-25; C9803; M0243; Q0244; U0003

== ENCOUNTER 2021-09-12 06:08 | Observation (INO) | payer MEDICARE, OTHER ==
[~2021-09-12] VITALS: Ht 154.9 cm; Wt 68.9 kg
--- NOTE | ~2021-09-12 | DS ---
[facility] [address] [place], [place] [address] Draft ADMISSION DATE: 09/12/2021 DISCHARGE DATE: 09/14/2021 REASON FOR ADMISSION: The patient is here to undergo right palliative mastectomy and excision of large axillary metastatic tumor burden for symptomatic congestive right-sided mastopathy. PERTINENT PHYSICAL EXAMINATION: GENERAL: Pleasant white woman, who is somewhat frail overall. CHEST: Shows prior left mastectomy without sign of local recurrence or significant left arm edema. Right breast shows massive enlargement and edema with a very large palpable mass in the axillary tail of Serrano extending to the axilla consistent with extensive axillary disease. ABDOMEN: With poor muscle tone, but soft and nontender. HOSPITAL COURSE: She underwent a right modified radical mastectomy with extended lymphadenectomy and placement of drains. The right supraclavicular adenopathy was not addressed on this occasion. Her postoperative course was rather unremarkable. She was immediately consulted by Occupational and Physical Therapy specialist to fit an edema sleeve on the right side and subsequently on the left side. Other methods of avoidance of lymphedema given her underlying problem were explored as well. By the time of discharge, she is ambulating well, tolerating regular diet, understands well wound care, drain management and has lymphedema sleeve on left and right side. FOLLOWUP PLAN: She is to return to see me in approximately three weeks or sooner if her wound drainage should be less than 30 mL in a day to two days in a row. DISCHARGE MEDICATIONS: Her discharge medications will include: 1. Motrin 600 mg p.o. q.6 hours as needed for pain, #30. 2. Oxycodone 5 mg one p.o. q.6 hours as needed for pain, #10. 3. Tylenol plain 1000 mg p.o. q.6 hours p.r.n. pain, #60. She will continue with these medications including vitamins A and D, Lasix 40 mg p.o. daily. We will do b.i.d. for one week given her peripheral edema otherwise. 1. Potassium chloride 20 mEq p.o. b.i.d. for one week and then daily went back to normal Lasix dose. 2. Metoprolol 25 mg p.o. daily. PATIENT NAME: SOPHIE BALDERAS DISCHARGE SUMMARY DATE OF : 44 REPORT #: [id number] PHYSICIAN: GLADYS ZENG MD PCP: JOSE LOVELL PAC REPORT IS CONFIDENTIAL AND NOT TO BE RELEASED WITHOUT AUTHORIZATION [facility] [address] [place], [place] [address] Draft 3. Combigan eyedrops one drop, right eye each day. 4. Calcium carbonate and vitamin D3 one tablet p.o. daily. 5. Aspirin 81 mg p.o. daily. DISCHARGE DIAGNOSES: 1. Severe congestive right-sided mastopathy with extensive axillary and tumor involvement related to contralateral breast cancer metastasis. 2. History of left recurrent breast cancer x3, status post ultimately extended left mastectomy with axillary dissection. 3. Status post right modified radical mastectomy with resection of extensive tumor burden of right axilla and placement of drains. MD GUNNER Shell/MODL /[id number] cc: Almaz Mccormack MD, PH.D. JOVANY Duran MD Nathalie Johnson, MD Copies: ALMAZ MCCORMACK,DONAVAN HAHN MD, MD ~ PATIENT NAME: SOPHIE BALDERAS DISCHARGE SUMMARY DATE OF : 44 REPORT #: [id number] PHYSICIAN: GLADYS ZENG MD PCP: JOSE LOVELL PAC REPORT IS CONFIDENTIAL AND NOT TO BE RELEASED WITHOUT AUTHORIZATION
--- NOTE | ~2021-09-12 | OR ---
[facility] [address] [place], [place] [address] Draft DATE OF OPERATION: 09/12/2021 SURGEON: Gladys Zeng MD PREOPERATIVE DIAGNOSES: 1. Recurrent right axillary extensive breast cancer with subsequent obstructive severe mastopathy of right breast. 2. History of left breast cancer with multiple recurrence. 3. Right supraclavicular adenopathy. POSTOPERATIVE DIAGNOSES: 1. Recurrent right axillary extensive breast cancer with subsequent obstructive severe mastopathy of right breast. 2. History of left breast cancer with multiple recurrence. 3. Right supraclavicular adenopathy. PROCEDURE: Right palliative modified radical mastectomy with extensive axillary lymph node dissection, prolonged, complicated and difficult. ANESTHESIA: General endotracheal, Sapna Kaur CRNA INDICATIONS: This 81-year-old white woman is a patient of Kiesha Lovell. She has a number of years history of treatment for left-sided breast cancer culminating in the left mastectomy having had local recurrence including dermal metastasis several months ago. She had developed contralateral lymph node drainage to the right side. She had recurrence of bulky adenopathy on the right side and has recently developed a massively swollen right breast related to this. She does not have proper. Notably, her primary tumor was "triple negative." She has been given various chemotherapeutic regimens under the direction of Dr. Garcia through a right jugular Port-A-Cath device. As she had no clinical response to most recent chemotherapeutic regimen, Dr. Garcia has recommended and I concur with salvage right mastectomy and debulking of right axilla as much as possible. Radiation therapy is anticipated by Dr. Toth at conclusion of this. The risks of bleeding, infection, vascular injury most particularly nerve injury and other unforeseen complications related to extensive resection was reviewed with her. She understands and wished to proceed. PATIENT NAME: SOPHIE BALDERAS OPERATIVE REPORT DATE OF : 44 REPORT #: [id number] PHYSICIAN: GLADYS ZENG MD PCP: KIESHA LOVELL PAC REPORT IS CONFIDENTIAL AND NOT TO BE RELEASED WITHOUT AUTHORIZATION [facility] [address] [place], [place] [address] Draft FINDINGS: The breast was massively edematous, but not infected in any way. Bulky tumor was noted in the axillary tail of Serrano extending to the apex of the axilla. The adenopathy extended to the subclavian vein quite obviously and meticulous dissection along the subclavian vein freed nearly all of the adenopathy completely. There were two branches of the thoracodorsal nerve, one of which was preserved, the other which was incorporated and resected. The bulky tumor was impressive and likely the congested mastopathy was related to lymphatic congestion dominantly as an axillary vein itself was not in fact compressed though tumor was certainly nearly contiguous with it. At conclusion, the mass of breast has been removed as has been the axillary contents. A very bulky tumor which extended beneath the pectoralis and up to the . Supraclavicular lymph nodes were not excised on this occasion today. DESCRIPTION OF PROCEDURE: The patient was brought to the operating room, given a general endotracheal anesthetic. A Manzo catheter was placed. The right breast, axilla and chest were prepared with a chlorhexidine solution and draped sterilely. Position of the right internal jugular Port-A-Cath device placed inferior and medial to the right clavicle was maintained in a safe position. A very heavy and bulky breast was supported and an elliptical incision was made extending through the dermis. Watery edema was noted throughout. Superior and inferior flaps were developed with primarily electrocautery dissection. Dissection was carried inferiorly and posteriorly and freeing the breast from the pectoralis muscle suturing large vessels with sutures as necessary and most dominantly cautery. The extensive size of the tumor was such that just the mastectomy portion was quite lengthy. In the axillary tail of Zach extending into the deep axilla was a large bulky firm mass. Extended beneath the pectoralis muscle and laterally to the latissimus dorsi. Dissection was begun beneath the pectoralis maintaining the tumor in continuity with the breast itself. Dissection was carried cephalad and extended to the very uppermost portion of the axilla. Various approaches to the tumor were undertaken to free it from the chest wall. The axillary vein was identified with fibrous capsule of the axillary contents it somewhat. Meticulous care was taken to avoid axillary vessel injury which would be quite easy to do given the extent of the tumor. With meticulous care, further dissection was undertaken deeply and superiorly ultimately identify the thoracodorsal neurovascular bundle. This was dissected free from the bulky tumor and adenopathy and preserved another such branch was noted but was contiguous with the tumor itself and was divided. Dissection medially, superiorly and posteriorly with great care ultimately freed entire bulk of the tumor, the axillary tail and the axillary lymph nodes. Palpably, at the apex of the axilla were possibly small lymph nodes, but no further dissection was deemed advisable into this area. The area was irrigated with sterile water for its tumor lytic effect. Two separate stab incisions were made to PATIENT NAME: SOPHIE BALDERAS OPERATIVE REPORT DATE OF : 44 REPORT #: [id number] PHYSICIAN: GLADYS ZENG MD PCP: KIESHA LOVELL PAC REPORT IS CONFIDENTIAL AND NOT TO BE RELEASED WITHOUT AUTHORIZATION [facility] [address] [place], [place] [address] 10 mm flat Shamar drains. Three separate syringes of Tisseel were used to cover the pectoralis flaps and the deep axilla. The drains were placed in usual position. The skin was then closed with interrupted 2-0 Vicryl. The lateral aspect with a bulky posterior axillary fold was remodeled with a T-plasty type incision. Redundant dog ears were excised additionally. Once the deep dermal layer was secured, a stapling device was used to further secure the skin. Two Acticoat dressings were applied and later OpSite dressings. The two drain sites were secured with additional nylon as there was a bit of a leak in the drains. This allowed for good occlusion. The patient was ultimately extubated and transported to the recovery room in good condition having suffered no known complications. Sponge, needle, and instrument counts were reported as correct x3. The operation was very prolonged, complicated, and difficult on the basis of bulkiness of the axillary adenopathy, but good benefit was obtained for resection. No additional dissection was undertaken in the supraclavicular space given the extent of dissection already undertaken and the placement and pathway of the internal jugular Port-A-Cath device. The operation was prolonged, complicated, and difficult lasting essentially 2.5 hours, three times longer than usual at least. MD GUNNER Shell/MICKIL /[id number] Copies: ~ PATIENT NAME: SOPHIE BALDERAS OPERATIVE REPORT DATE OF : 44 REPORT #: [id number] PHYSICIAN: GLADYS ZENG MD PCP: KIESHA LOVELL PAC REPORT IS CONFIDENTIAL AND NOT TO BE RELEASED WITHOUT AUTHORIZATION
[~2021-09-12 06:08] MED LIST changes: +CALCIUM + D3 E1 EACH PO; +COMBIGAN EYE DRO5 ML OD; +DORZOLAMIDE 2%10 ML OP; +FEMARA2.5 MG NG; +LORAZEPAM2 MG PO; +LYNPARZA100 MG PO; +ONDANSETRON ODT8 MG PO; +SENEXON-S 50-81 EACH PO; +TYLENOL EXTRA500 MG PO
[2021-09-12] MEDS ORDERED: OXYCONTIN10 MG PO (06:36)
[2021-09-12] MEDS ORDERED: OXYCODONE HCL5 MG PO (13:14)
[2021-09-12] MEDS ORDERED: CEPHALEXIN500 MG PO (13:15)
[2021-09-12] MEDS ORDERED: ASPIRIN325 MG PO (13:31)
[2021-09-12] MEDS ORDERED: IBUPROFEN200 MG PO (13:32)
--- NOTE | 2021-09-12 17:25 | OR ---
[facility] [address] [place] [address] Signed DATE OF OPERATION: 09/12/2021 SURGEON: Gladys Zeng MD PREOPERATIVE DIAGNOSES: 1. Right congestive mastopathy with bulky axillary adenopathy and tail of Serrano mass. 2. Right supraclavicular adenopathy. 3. History of left-sided breast cancer with multiple recurrences. POSTOPERATIVE DIAGNOSES: 1. Right congestive mastopathy with bulky axillary adenopathy and tail of Serrano mass. 2. Right supraclavicular adenopathy. 3. History of left-sided breast cancer with multiple recurrences. PROCEDURE: Right extended modified radical mastectomy prolonged, complicated and difficult with level three axillary dissection. ANESTHESIA: General endotracheal, Sapna Kaur CRNA. DRAINS: 10 mm flat Shamar x2. INDICATION: This 81-year-old white woman is a patient of Kiesha Lovell and has a complex past medical history of breast cancer on the right side. MD GUNNER Shell/MODL /[id number] Electronically Signed By: GLADYS ZENG MD 09/12/21 1725 PATIENT NAME: SOPHIE BALDERAS OPERATIVE REPORT DATE OF : 44 REPORT #: [id number] PHYSICIAN: GLADYS ZENG MD PCP: KIESHA LOVELL PAC REPORT IS CONFIDENTIAL AND NOT TO BE RELEASED WITHOUT AUTHORIZATION [place] [address] [place], [place] [address] Signed Copies: ~ Electronically Signed By: GLADYS ZENG MD 09/12/21 1725 PATIENT NAME: SOPHIE BALDERAS OPERATIVE REPORT DATE OF : 44 REPORT #: [id number] PHYSICIAN: GLADYS ZENG MD PCP: KIESHA LOVELL PAC REPORT IS CONFIDENTIAL AND NOT TO BE RELEASED WITHOUT AUTHORIZATION
[2021-09-14] MEDS ORDERED: OXYCODONE HCL5 MG PO (11:16)
[2021-09-14] MEDS ORDERED: IBUPROFEN600 MG PO (11:16)
[2021-09-14] MEDS ORDERED: ACETAMINOPHEN500 MG PO (11:16)
--- NOTE | 2021-09-25 14:26 | PATH ---
[facility] [address] [place], [place] [address] Signed THIS IS AN ADDENDUM REPORT SPECIMEN(S): A RIGHT BREAST AND AXILLARY CONTENTS SPECIMEN SOURCE: A. 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 FINAL PATHOLOGIC DIAGNOSIS: Breast and axillary contents, right, radical mastectomy: - Metastatic ductal carcinoma with soft tissue extension of the axillary tail, see Comment. - Overall tumor mass size: 16.7 x 14.5 x 9.2 cm. - Lymphovascular invasion: Present, extensive. - Dermal lymphovascular invasion: Not identified. - Breast biomarkers: - Estrogen Receptor: Negative, less than 1% of tumor cells with weak staining. - Progesterone Receptor: Negative, 0% of tumor cell staining. - Sparse background breast parenchyma, negative for in situ carcinoma. - Margins: Metastatic/invasive carcinoma focally present at ragged superior margin. - Deep margin: Less than 1 mm. - Inferior margin: Greater than 10 mm. 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 The current right radical mastectomy specimen demonstrates a bulky tumor mass within the axillary tail/upper outer quadrant with extensive associated lymphovascular invasion and soft tissue extension. Grossly, the tumor is comprised of several well-circumscribed masses. Microscopically, many of the tumor nodules are surrounded by a capsule and areas compatible with residual lymph node parenchyma are identified. Two smaller lymph nodes are identified adjacent to this bulky mass, one demonstrating complete replacement by tumor. Histologically, the PATIENT NAME: SOPHIE BALDERAS PATHOLOGY DATE OF : 44 REPORT #: [id number] PHYSICIAN: MELVIN PATHOLOGY PCP: JOSE LOVELL PAC REPORT IS CONFIDENTIAL AND NOT TO BE RELEASED WITHOUT AUTHORIZATION [facility] [address], [place] [address] Signed tumor resembles the carcinoma present in the contralateral breast ([id number]). There is no in situ carcinoma identified in the sparse background breast tissue. Given the combined gross and microscopic features, this tumor mass is interpreted as representing several matted lymph nodes massively expanded by metastatic ductal carcinoma. Definitive number of lymph nodes involved cannot be determined. Extensive tumor necrosis is present, but it is difficult to determine if the necrosis is secondary to ischemia from large tumor size or chemotherapy treatment. As part of [employer] Quality improvement program, this case was reviewed by another member of our pathology staff. A diagnostic alert was initiated by Dr. Reeves on 09/25/21. NAL:cml:C1NR MICROSCOPIC EXAMINATION: Histologic sections of all submitted blocks are examined by light microscopy. These findings, together with the gross examination, support the pathologic diagnosis. Immunohistochemical stains (with appropriately staining controls) were performed to evaluate the tumor cells. The tumor is positive for CK7 and mammaglobin, confirming breast origin. TTF-1 is negative in the tumor cells. GROSS DESCRIPTION: A: [id number]_002 The specimen, labeled "MH, A," and designated on the requisition "right breast + axillary contents," is received in formalin and consists of a 2236.7 g, 20.2 x 24.6 x 6.4 cm mastectomy specimen that is unoriented. Grossly identifiable skeletal muscle is not seen. Extending from one aspect of the specimen is a ragged, previously incised, lobulated, rubbery to indurated, 16.7 x 14.5 x 9.2 cm area (see images) with multiple ragged defects. Per the op notes, the indurated area is the axillary tail. The indurated area is arbitrarily designated the axillary tail and the specimen is oriented as such. On the anterior surface of the specimen is a nugent-pink, wrinkled, grossly unremarkable, 42.1 x 28.9 cm skin ellipse with a centrally located, ill-defined, grossly unremarkable, nugent-pink, 5.5 x 5.3 cm areola and a nugnet, grossly unremarkable, 1.7 x 1.5 x 0.7 cm nipple. The PATIENT NAME: SOPHIE BALDERAS PATHOLOGY DATE OF : 44 REPORT #: [id number] PHYSICIAN: MELVIN LUNA PCP: JOSE LOVELL PAC REPORT IS CONFIDENTIAL AND NOT TO BE RELEASED WITHOUT AUTHORIZATION [facility] [address], [place] [address] Signed specimen is inked as follows: Superior aspect of the specimen = blue; inferior aspect of the specimen = green; posterior = black. The specimen is sectioned from lateral to medial into 15 slices to reveal an ill-defined, lobulated, ragged, 16.7 x 14.5 x 6.2 cm, nugent-white to dark red hemorrhagic, somewhat friable mass within the upper outer quadrant and involving the possible axillary tail. The mass is consistent with the previously mentioned indurated area. The mass grossly appears to involve the defects, the superior margin, and the deep margin. The mass is 2.2 cm from the skin, 4.5 cm from the inferior margin, and 16.9 cm from the nipple. The remaining parenchyma is comprised of yellow fibrofatty and nugent-white fibroglandular tissue without an additional discrete mass/lesion. Fibroglandular tissue comprises approximately 5% of the remaining parenchyma. Grossly definitive lymph node is not identified in the upper outer quadrant. Vehicle Cost Engineer sections are submitted as follows: A1-A2 lesion to superior and deep margin (slice 3) A3 lesion to deep margin (slice 6) A4 lesion to superior margin including ragged defect area (slice 6) A5 lesion including areas of hemorrhage (slice 5) A6 nearest skin to lesion (slice 6) A7 nearest inferior margin to lesion (slice 6) A8 nipple and areolar complex (slice 10) A9 upper outer quadrant (slice 8) A10 lower outer quadrant (slice 4) A11 upper inner quadrant (slice 12) A12 lower inner quadrant (slice 14) Cold ischemic time: One hour and 8 minutes per requisition form Formalin fixation time: Approximately 46 hours AI (under the direct supervision of a pathologist). Per request by Dr. Reeves, the case is revisited. Additional sections are submitted as follows: A13-A14 lesion to ragged, disrupted margin (slice one) A15 lesion to ragged, disrupted margin (slice 3) A16-A18 lesion to normal parenchyma (slice 4, 5, and 7 respectively) A19-A21 lesion (slice 5, 6, and 8 respectively) A22 skin (slice 5 and 8) A23 skin (slice 8 and 9) AI 09/19/21 6:55AM PATIENT NAME: SOPHIE BALDERAS PATHOLOGY DATE OF : 44 REPORT #: [id number] PHYSICIAN: MELVIN LUNA PCP: JOSE LOVELL PAC REPORT IS CONFIDENTIAL AND NOT TO BE RELEASED WITHOUT AUTHORIZATION [facility] [address], [place] [address] Signed The Gross Description was prepared using a voice recognition system. The report was reviewed for accuracy; however, sound-alike word errors, addition and/or deletions may occur. If there is any question about this report, please contact Client Services. ADDITIONAL NOTES: Immunohistochemical and/or in situ hybridization studies were performed on this case with the appropriate positive controls that react as expected. This test was developed and its performance characteristics determined by [facility] [facility]. It has not been cleared or approved by the U.S. Food and Drug Administration. The FDA has determined that such clearance or approval is not necessary. This test is used for clinical purposes. It should not be regarded as investigational or for research. [facility] is certified under the Clinical Laboratory Improvement Amendments of 1988 (CLIA) as qualified to perform high complexity clinical laboratory testing. This assay has not been validated for specimens that have been decalcified. PERFORMING LABORATORY: The technical component was performed by [facility], [address] [place] [id number] (Facility Service Associate: Anahy Wilson MD; CLIA# [id number]). [facility] [address] [address] (CLIA# [id number]). Block: A5. The cold ischemia time is 68 minutes. The fixative is 10% NBF. The length of fixation is 46 hours, meeting ASCO/CAP guidelines. Estrogen receptor clone SP1 and progesterone receptor clone 1E2 by [employer] [place], [place]. Detection: HRP Polymer Detection on the [employer] with appropriate controls. Nuclear immunoreactivity of 1% or greater is considered positive by ASCO/CAP 2020 guidelines. Internal control cells for ER are absent. Internal control cells for DC are absent. NAL:cml The technical component was performed by [facility], [address] [place] [id number] (Facility Service Associate: Anahy Wilson MD; CLIA# [id number]). Professional interpretation [facility], [address] [address] (CLIA# PATIENT NAME: SOPHIE BALDERAS PATHOLOGY DATE OF : 44 REPORT #: [id number] PHYSICIAN: MELVIN LUNA PCP: JOSE LOVELL PAC REPORT IS CONFIDENTIAL AND NOT TO BE RELEASED WITHOUT AUTHORIZATION [facility] [address], [place] [address] Signed [id number]). The technical and professional components were performed by [facility], [address] [place] [address] (Facility Service Associate: Clark Benitez D.O.; CLIA#: [id number]). REASON FOR ADDENDUM: To report results of additional testing. ADDENDUM PATHOLOGIC DIAGNOSIS: HER-2 protein by IHC, right breast and axillary contents: - Equivocal; IHC score 2+. ADDENDUM COMMENT: In view of the equivocal IHC result, reflex testing for HER-2 amplification by FISH has been ordered and will be reported by addendum. AIC:[facility] ADDENDUM MICROSCOPIC EXAMINATION: Block: A5. The fixation is 10% buffered formalin. The length of fixation is 46 hours, meeting ASCO/CAP guidelines. HER-2 protein expression by immunohistochemistry using the FDA-approved HER-2 Pathway [place] at the request of Dr. Ember Reeves. The assay has not been validated for decalcified specimens. Standardized batch control materials react appropriately. The presence of tumor is confirmed. Scoring is according to ASCO/CAP 2018 guidelines for breast HER-2 testing. This assay and scoring method are not specifically validated for tissue types other than breast. Weak to moderate complete membrane staining observed in greater than 10% of tumor cells; score 2+. PERFORMING LABORATORY: The technical and professional components were performed by [facility], [address] [place] [address] (Facility Service Associate: Clark Benitez D.O.; CLIA#: [id number]). REASON FOR ADDENDUM: To report results of additional testing. ADDENDUM PATHOLOGIC DIAGNOSIS: HER-2 gene by FISH, right breast and axillary contents: - Negative for amplification. GP:[facility] PATIENT NAME: SOPHIE BALDERAS PATHOLOGY DATE OF : 44 REPORT #: [id number] PHYSICIAN: MELVIN PATHOLOGY PCP: JOSE LOVELL PAC REPORT IS CONFIDENTIAL AND NOT TO BE RELEASED WITHOUT AUTHORIZATION [facility] [address], [place] [address] Signed ADDENDUM MICROSCOPIC EXAMINATION: Specimen type: Mastectomy. Block: A5. Cold ischemia time: 68 minutes. The fixation is 10% buffered formalin. The length of fixation is 46 hours, meeting ASCO/CAP guidelines. Scoring method: Manual. Fluorescence in situ hybridization (FISH) study (multiplex probe) for HER-2 gene amplification using the [employer] HER2 IQFISH pharmDx kit [place] The assay has not been validated for decalcified specimens. Scoring and interpretation is according to ASCO/CAP 2018 guidelines for breast HER-2 testing. This assay and scoring method are not specifically validated for tissue types other than breast. Controls were processed in the same batch as the patient and reacted appropriately. The patient's sample was considered adequate for interpretation. - Number of nuclei counted: 40 - Number of HER-2 signals counted: 85 - Number of CEP 17 signals counted: 88 - Average number of HER-2 signals per cell: 2.1 - Average number of CEP 17 signals per cell: 2.2. - HER-2:CEP 17 ratio: 1.0 Negative for HER-2 amplification (ratio less than 2.0 or average HER-2 signals per cell less than 4.0). Diagnostician: Ember Reeves MD Pathologist Diagnostician: Jesus Silva MD. MPH Pathologist Diagnostician: Rufina Melgar MD Pathologist Electronically Signed 09/25/2021 Copies: ~ PATIENT NAME: SOPHIE BALDERAS PATHOLOGY DATE OF : 44 REPORT #: [id number] PHYSICIAN: MELVIN LUNA PCP: JOSE LOVELL PAC REPORT IS CONFIDENTIAL AND NOT TO BE RELEASED WITHOUT AUTHORIZATION
== END 2021-09-14 13:22 | disposition home or self-care (01) ==
LOC: DS 06:08 → EDSTATUS 07:00 → MS 11:30 → DS 11:31 → MS 09-14 13:22
PROVIDERS: ADMIT Surgery; ATTEND Surgery
PROC: 0HTT0ZZ Resection of Right Breast, Open Approach (ICD-10-PCS; principal; 2021-09-12 07:00)
DX: C50.611 Malignant neoplasm of axillary tail of right female breast (principal); C77.3 Secondary and unspecified malignant neoplasm of axilla and upper limb lymph nodes; I89.0 Lymphedema, not elsewhere classified; J30.2 Other seasonal allergic rhinitis; E66.9 Obesity, unspecified; H40.9 Unspecified glaucoma; M19.90 Unspecified osteoarthritis, unspecified site; R06.02 Shortness of breath; I10 Essential (primary) hypertension; I48.91 Unspecified atrial fibrillation; R04.0 Epistaxis; Z17.1 Estrogen receptor negative status [ER-]; Z88.1 Allergy status to other antibiotic agents; Z88.8 Allergy status to other drugs, medicaments and biological substances; Z79.82 Long term (current) use of aspirin; Z68.33 Body mass index [BMI] 33.0-33.9, adult; Z86.16 Personal history of COVID-19
CPT/HCPCS: 00404; 80048; 85025; 88309; 88341; 88342; 88360; 88377; 96372; 96374; 96375; 96376; 97166; 97760; G0378; J0131; J0330; J0690; J1100; J1644; J1885; J1940; J2001; J2250; J2405; J2704; J7121

== ENCOUNTER 2021-10-17 05:58 | Inpatient (IN) | payer MEDICARE, OTHER ==
[~2021-10-17] VITALS: Ht 154.9 cm; Wt 67.3 kg
[~2021-10-17 05:58] MED LIST changes: +ASPIRIN325 MG PO; +COMBIGAN EYE DRO5 ML OU; +IBUPROFEN200 MG PO; +IBUPROFEN600 MG PO; -K-TAB ER20 MEQ PO; +OXYCODONE HCL5 MG PO; +OXYCONTIN10 MG PO; -VITAMIN A AND1 EACH PO; +VITAMIN A2400 MCG PO; +VITAMIN B-121000 MCG PO
--- NOTE | 2021-10-17 08:44 | NUR ---
DR ZENG HAD JUST LEFT WITH PT-GAVE HER SOME NEWS SHE DIDN'T WANT TO HEAR. WAS TRYING TO PROCESS-SPENT TIME ENCOURAGING HER AND FAMILY PRESENT. PT TRYING TO REMAIN POSITIVE, REQUESTED PRAYER. WILL FOLLOW NEEDED
[2021-10-17] MEDS ORDERED: OXYCODONE HCL5 MG PO (11:01)
[2021-10-17] MEDS ORDERED: IBUPROFEN600 MG PO (11:01)
[2021-10-17] MEDS ORDERED: OXYCODON-ACETA1 EAC2 PO (11:02)
[2021-10-17] MEDS ORDERED: ACETAMINOPHEN500 MG PO (11:02)
--- NOTE | 2021-10-17 11:32 | NUR ---
10/17/21 1132 Sheets,Marilynn 1023 PT ARRIVED TO PACU, PT REPORTS NAUSEA AND EMESIS BAG GIVEN. HOB INCREASED. 1028 NAUSEA MEDICATION GIVEN. COOL WASH CLOTHE TO FORHEAD AND CONTINUES TO DRY HEAVE. HEART RATE INCREASING, 160S. 1032 O2 DECREASED AND 4L NC PLACE. PT CONTINUES TO DRY HEAVE WITH INCREASING HEART RATE. ELECTRICAL TRYOUT PERSON NOTIFIED. HEART RATE NOTED AT 170 AND O2 INCREASING. PT DENIES PAIN OR DIZZINESS, "TUMMY" PT REPORTS NAUSEA. SCANT AMOUNT OF EMESIS NOTED, CLEAR AND TISSUE USE TO WHIPE FACE. 1038 ELECTRICAL TRYOUT PERSON AT BEDSIDE AND AT NEW ORDER RECEIVED. RN CONTINUES TO REMIND PT TO DEEP BREATHE. HEART RATE DECREASING, 110. 1041 NAUSEA MEDICATION GIVEN PER EMAR. 1044 O2 100 AND O2 DECREASED TO 2L. PT REPORT NAUSEA IS GETTING BETTER. PT RESTIN BACK IN BED AND HEART RATE DECREASING. 1050 ELECTRICAL TRYOUT PERSON CHECKING ON PT, NO NEW ORDERS. PT RESTING. O2 DECREASED TO 88% AND O2 INCREASED TO 3L. O2 INCREASED. 1120 MD AT BEDSIDE AND SMALL AMOUNT OF AIR NOTED UNDER DRESSING AND CHEST XRAY ORDERED. RIGHT ARM SWELLING NOTED AND MD AWARE. 1125 X-RAY AT BEDSIDE. PT SITS UP IN BED AND REPORT NAUSEA IS BETTER AND NO PAIN. O2 DECREASED 2L. 1130 PT ASLEEP OFF AND ON AND RN CONTINUES TO REMIND PT TO DEEP BREATHE.
--- NOTE | 2021-10-17 12:10 | NUR ---
Pt arrives to med surg floor, able to transfer self to bed, becomes tachycardic with movement to 170's, briefly sustained. Once at rest pt returns to 95-130's. Tele in place. Pt on 2L NC O2, spo2 99%. Dressing visualized C/D/I, [address], past surgical site on L breast visualized, well approximated with no signs infection.
--- NOTE | 2021-10-17 13:05 | NUR ---
Pt reports has not taken home dose of Metoprolol since Saturday.
--- NOTE | 2021-10-17 14:00 | NUR ---
Pt maintaining HR between 95-115 on tele #7.
--- NOTE | 2021-10-17 15:28 | NUR ---
Dr Watters notified regarding patient sustained HR >100, BP, and home metoprolol dosage. Verbal order received to administer home dose of 25mg metoprolol now and continue on home schedule. Order entered, awaiting pharmacy verification
--- NOTE | 2021-10-17 17:15 | NUR ---
MED REC COMPLETE
--- NOTE | 2021-10-17 18:19 | NUR ---
PT RESTING IN BED WITH EYES CLOSED. PT IS "NOT QUITE READY" TO RRY AND VOID. KAEL RHODES NOTIFIED. NO FURTHER NEEDS AT THIS TIME.
--- NOTE | 2021-10-17 18:20 | NUR ---
Alerted by ADJUNCT PHYSICAL EDUCATION INSTRUCTOR of pt low BP, no void. Retaken BP remains 79/49. HR 110. Afebrile. Pt having no symptoms of palpitations, dizziness, chest pain/pressure, etc.; completely asymptomatic. Attempted to phone Dr Keith, left message, electrical discharge machine operator informed
--- NOTE | 2021-10-17 18:31 | EKG ---
[facility] [address] [facility] [place] [address] Signed Atrial fibrillation with rapid ventricular response Low voltage QRS Inferior infarct , age undetermined Abnormal ECG When compared with ECG of 26-JUL-2021 10:58, Inferior infarct is now present Confirmed by FILI YING MD ([id number]) on 10/17/2021 6:31:42 PM Electronically Signed By: FILI YING MD 10/17/211830 PATIENT NAME: SOPHIE BALDERAS Electrocardiogram DATE OF : 44 PHYSICIAN: FILI YING MD REPORT #: [id number] REPORT IS CONFIDENTIAL AND NOT TO BE RELEASED WITHOUT AUTHORIZATION
--- NOTE | 2021-10-17 19:37 | NUR ---
REPORT RECEIVED FROM DAY SHIFT RN. PT LYING IN BED ALERT AND ORIENTED. DENIES PAIN OR NAUSEA. ASSISTED TO REPOSITION IN BED. CPOX AND TELE IN PLACE. SpO2 98-100% ON 2L/NC. TELE #7. AFIB. HR UP TO 170'S WITH ACTIVITY. LOW 100'S AT REST. DENIES CHEST PAIN OR SOB. NO NEEDS AT THIS TIME. WHITE BOARD UPDATED. CALL LIGHT IN REACH.
--- NOTE | 2021-10-17 22:15 | NUR ---
EVENING ASSESSMENT COMPLETE. IVF INFUSING PER ORDER. PT DENIES PAIN OR NAUSEA AT REST. DRESSING TO RIGHT NECK CDI. HANY DRAIN TO RIGHT UPPER CHEST WITH 20 ML RED DRAINAGE. PREVIOUS HANY SITE ON RIGHT LOWER CHEST WITH SCANT AMOUNT SEROUS DRAINAGE COVERED WITH GAUZE. RUE ELEVATED ON PILLOW. TELE IN PLACE. AFIB. HR 80'S. PT DENIES CHEST PAIN OR SOB. SCD'S AND CPOX IN PLACE. PT REMAINS ON 2L/NC AT THIS TIME. ASSISTED TO REPOSITION IN BED. WARM BLANKET PROVIDED. PT DENIES QUESTIONS OR CONCERNS. CALL LIGHT IN REACH.
--- NOTE | 2021-10-17 23:59 | NUR ---
PT RESTING IN BED WITH EYES CLOSED. RESPIRATIONS EVEN. HOB ELEVATED. CALL LIGHT IN REACH.
--- NOTE | 2021-10-18 00:44 | NUR ---
[facility] DOWN TIME. SEE PAPER CHART.
--- NOTE | 2021-10-18 05:30 | NUR ---
[facility] DOWN TIME 0100 TO 0530. SEE PAPER CHART.
--- NOTE | 2021-10-18 06:51 | NUR ---
APPLE JUICE PROVIDED. EMPTIED HANY. PATIENT REFUSED TO USE THE COMMODE THIS TIME. STATED DONT NEED TO PEE.
--- NOTE | 2021-10-18 06:57 | NUR ---
VS AND I&O COMPLETE. BP NOTED TO BE LOW. PT STATES NORMAL. DENIES PAIN OR NAUSEA. APPLE JUICE AND FRESH WATER PROVIDED. NO FURTHER NEEDS. CALL LIGHT IN REACH.
--- NOTE | 2021-10-18 07:15 | NUR ---
Report received from Pat SCRUGGS. Pt resting in bed, alert and oriented, states no pain or needs at this time. IVF infusing WNL. HR within 80-90s at this time, remains on 2L NC and CPOX. Will continue plan of care.
--- NOTE | 2021-10-18 08:11 | NUR ---
PT AWAKE IN BED WATCHING TV. WHITE BOARD UPDATED. WARM CLOTH GIVEN FOR FACE. NO FURTHER NEEDS AT THIS TIME.
--- NOTE | 2021-10-18 09:34 | NUR ---
PT AWAKE IN ROOM WITH AT BEDSIDE. CALL LIGHT WITHIN REACH. RN CARMELO IN ROOM DURING VITALS. NO FURTHER NEEDS AT THIS TIME.
--- NOTE | 2021-10-18 09:41 | NUR ---
Dr Keith notified regarding BP, discussed plan of care
--- NOTE | 2021-10-18 10:34 | OR ---
[facility] [address] [place], [place] [address] Signed DATE OF OPERATION: 10/17/2021 SURGEON: Gladys Zeng MD PREOPERATIVE DIAGNOSES: 1. History of multiple recurrent breast cancers; status post recent right modified radical mastectomy and extensive lymphadenectomy for recurrent breast cancer of right axilla (related to recurrent breast cancer, left chest wall). 2. Extensive supraclavicular adenopathy including extension to perijugular and posterior triangle lymph nodes. POSTOPERATIVE DIAGNOSES: 1. History of multiple recurrent breast cancers; status post recent right modified radical mastectomy and extensive lymphadenectomy for recurrent breast cancer of right axilla (related to recurrent breast cancer, left chest wall). 2. Extensive supraclavicular adenopathy including extension to perijugular and posterior triangle lymph nodes. PROCEDURE: Neck dissection including posterior triangle, supraclavicular space and perijugular space. ANESTHESIA: General endotracheal, Cristi Selwyn, COMPUTER OPERATIONS SPECIALIST and local 10 mL of 0.25% Marcaine with epinephrine. INDICATION: This 81-year-old white woman is a patient of Kiesha Lovell. She has a complicated distant history of initially left triple negative breast cancer for which lumpectomy, sentinel lymph node biopsy, radiation and chemotherapy was initiated in [place], [place] a number of years ago. Subsequent recurrence was similarly treated in [place] a few years ago. She had recurrent disease locally including extensive dermal metastases and was seen in conjunction with Dr. Garcia at which point, she underwent left modified radical mastectomy including wide resection of the dermal metastases. She healed the incision well with no evidence of recurrent disease, though she also underwent a left supraclavicular lymph node biopsy confirming metastatic disease there. Chemotherapy was undertaken under the direction of Dr. Garcia. She then developed bulky adenopathy of the right axilla as well as right supraclavicular space and mild arm edema. Imaging studies confirmed disease restricted to those two areas without sign of Electronically Signed By: GLADYS ZENG MD 10/18/21 1034 PATIENT NAME: SOPHIE BALDERAS OPERATIVE REPORT DATE OF : 44 REPORT #: [id number] PHYSICIAN: GLADYS ZENG MD PCP: KIESHA LOVELL PAC REPORT IS CONFIDENTIAL AND NOT TO BE RELEASED WITHOUT AUTHORIZATION [facility] [address] [place], [place] [address] Signed distant metastasis. Therapy under the direction of Dr. Garcia did not improve her clinical bulky disease and indeed she then developed rather extensive right breast edema, likely related to congestive mastopathy from the very large axillary bulky disease as well as a relatively extensive supraclavicular adenopathy. Approximately three weeks ago, she underwent right modified radical mastectomy with extensive lymphadenectomy by me with immediate initiation of lymphedema prophylactic measures. In conference with Dr. Almaz Mccormack, radiation therapist, a plan for regional and supraclavicular radiation therapy is anticipated. Given the bulky disease in the right supraclavicular space, it is the recommendation of Dr. Mccormack that lymphadenectomy be undertaken in that area to decrease tumor bulk and better optimize palliative intention of radiation therapy to that area. I reviewed with the patient, her and daughter the extensive nature of her adenopathy on the right supraclavicular area, which extends to the posterior triangle and medially to the paratracheal space and definitely over the supraclavicular space. It is uncertain if complete debulking will be possible, now it will be attempted as there is theoretically isolated disease to this area. Notably, she does not have distant visceral metastases on recent examination. The special risks of this procedure were reviewed with them in detail including, but not limited to, bleeding or infection, spinal accessory nerve injury, phrenic nerve injury, major vascular injury including subclavian vein or artery and internal jugular vein. Additionally, a Port-A-Cath that had been implanted is extending in the region of intended dissection and sacrifice of that implement may be required. She also understands that this may not be beneficial from a palliative or curative perspective and that complete lymphadenectomy may be noted depending on the extent of disease more deeply and particularly around the major vascular structures. Understanding all of these factors, they strongly wished to proceed with lymphadenectomy. FINDINGS: In the posterior aspect in the region of the trapezius, the bulky adenopathy was relatively mobile as it was laterally. Dense involvement deeply and medially was noted. Lymph tissue was contiguous to the right internal jugular vein and definitely in the confluence of the right internal jugular and right subclavian vein medially. Very good tumor debulking was undertaken without complications, but admittedly there remained some malignant adenopathy in the region of the mid jugular vein posteriorly and slightly laterally. Additionally, some adenopathy that is suspicious remains in place in the subclavian space near the confluence of the internal jugular and the right subclavian vein. Further attempts at resection of these areas would likely result in prohibitive complication including possibly severe bleeding and on that basis, those areas were left in situ. Electronically Signed By: GLADYS ZENG MD 10/18/21 1034 PATIENT NAME: SOPHIE BALDERAS OPERATIVE REPORT DATE OF : 44 REPORT #: [id number] PHYSICIAN: GLADYS ZENG MD PCP: KIESHA LOVELL PAC REPORT IS CONFIDENTIAL AND NOT TO BE RELEASED WITHOUT AUTHORIZATION [facility] [address] [place], [place] [address] Signed DESCRIPTION OF PROCEDURE: The patient was brought to the operating room, given a general endotracheal anesthetic. The head was turned to the left. The arm was maintained at the side. The upper torso was prepared completely. Clips were in place from her mastectomy from a few weeks ago and removed at conclusion of the procedure. The bulky adenopathy was manipulated posteriorly and laterally, was found to have relatively well-formed contour and less distinct and possibly more fixed in the medial aspect. A curvilinear incision was made in the supraclavicular space, mindful of the position of the Port-A-Cath catheter that was in the right internal jugular vein. Dissection was carried through the skin using sharp dissection and electrocautery and the platysmal layer divided. Using blunt and meticulous electrocautery dissection and sharp dissection in the posterolateral area, the bulky adenopathy was dissected free from surrounding soft tissue. Small clips were applied as necessary to small venous branches. The transverse cervical nerves were found to be draped over the wound and these were dissected free, allowing for preservation of those branches, though it was challenging to do so. Further dissection rotating the bulky lymph tissue in an inferomedial direction allowed for evaluation and visualization of a spinal accessory nerve. This was carefully avoided obviously. Dissection was taken laterally and anteriorly as well and with similar technique and particularly with blunt dissection technique, we could find AaronOndeego suction device. The depths of the adenopathy were freed from the deep spaces. Dissection on the medial aspect showed the more fixation and the right internal jugular vein clearly identified and found to be densely adherent with an inflammatory response to the bulky adenopathy. This was dissected free as much as possible, was found to extend more medial even than previously sought. Small clips and medium-sized clips were applied to vascular structures as necessary. Prolonged meticulous dissection was undertaken, mindful of the various important structures in the space. When the bulk of the large package of contiguous lymph nodes was freed posteriorly, laterally, inferiorly and largely medially became clear that complete adenectomy would be unlikely and perhaps significantly hazardous particularly to the junction of the right internal jugular vein and right subclavian vein which was identified. On that basis, parenchymal division of lymph tissue measuring about 0.5 cm along the lateral aspect of the right internal jugular was undertaken and inferiorly in a similar manner anteriorly. As mentioned previously, numerous clips were used to secure small blood vessels. There likely was some amount of venous distention of small blood vessels given the bulkiness of the lesion and some venous compression locally associated with the adenopathy. The specimen was handed off for permanent pathology. Irrigation was undertaken and photograph taken. Spinal accessory nerve was quite easily visualized and unharmed as were 2 transverse cervical nerve branches. Irrigation was Electronically Signed By: GLADYS ZENG MD 10/18/21 1034 PATIENT NAME: SOPHIE BALDERAS OPERATIVE REPORT DATE OF : 44 REPORT #: [id number] PHYSICIAN: GLADYS ZENG MD PCP: KIESHA LOVELL PAC REPORT IS CONFIDENTIAL AND NOT TO BE RELEASED WITHOUT AUTHORIZATION [facility] [address] [place], [place] [address] Signed undertaken with sterile water for its tumor lytic effect. Hemostasis was found to be good. Tisseel (fibrin glue) was applied to those areas closest to the internal jugular and subclavian vein area with a small amount of Gel-Foam so as to be certain of hemostasis of the numerous small blood vessels in the area. Through a separate stab incision anterior and inferior to the right clavicle, a 10 mm round Shamar drain was passed and trimmed to length and applied in the supraclavicular and posterior triangle space. The wound was then closed with interrupted 2-0 Vicryl in the platysmal layer and a running subcuticular 3-0 Vicryl for the skin. Steri-Strips were applied as was an Acticoat dressing. As mentioned previously, clips that remained from her mastectomy wound were removed without incident. The patient tolerated the procedure well. It lasted from approximately 8:00 a.m. to 10:20 a.m. and was rather prolonged, complicated, and difficult, but accomplished safely and likely with clinical benefit. MD GUNNER Shell/GENESIS /[id number] cc: Almaz Mccormack MD, PH.D. MD Dr. Kiesha Mendoza Copies: ALMAZ MCCORMACK ROBERT C MD ~ Electronically Signed By: GLADYS ZENG MD 10/18/21 1034 PATIENT NAME: SOPHIE BALDERAS OPERATIVE REPORT DATE OF : 44 REPORT #: [id number] PHYSICIAN: GLADYS ZENG MD PCP: KIESHA LOVELL PAC REPORT IS CONFIDENTIAL AND NOT TO BE RELEASED WITHOUT AUTHORIZATION
--- NOTE | 2021-10-18 11:03 | NUR ---
Discussed pt condition with Dr Keith, orders to give PO metoprolol per order, administered. Pt BP 88/50 at this time, completely asymptomatic, stable condition. Tele in place, will continue to monitor
--- NOTE | 2021-10-18 12:55 | NUR ---
PT RESTING IN BED-ALERT AND ORIENTED.HER NATALIIA AT BS. PT IS PLEASANT DEALING APPROPRIATELY WITH HER CHALLENGES. PT WOULD LIKE TO SEE BOX FABRICATOR, WILL INFORM. HAD PRAYER AND GAVE G.POST. WILL FOLLOW NEEDED
--- NOTE | 2021-10-18 13:01 | NUR ---
PT DRESSED AND READY TO DC. AT BEDSIDE. KAEL RHODES IN ROOM.
--- NOTE | 2021-10-18 13:08 | NUR ---
Discharge teaching provided to patient who is A+O and verbalizes understanding. All drains removed, tele removed, pt stable >90% on room air. She reports no pain. All paperwork given and followup appointments made. Personal belongings returned to patient. at bedside and also verbalizes understanding. Iv removed WNL.
--- NOTE | 2021-10-18 14:05 | NUR ---
Face sheet, surgery note, progress note, order faxed to OP therapy for pt to resume OT and start PT.
--- NOTE | 2021-10-20 16:20 | PATH ---
[facility] [address] [place], [place] [address] Signed SPECIMEN(S): A RIGHT SUPRACLAVICULAR LYMPH NODE COMPLEX SPECIMEN SOURCE: A. RIGHT SUPRACLAVICULAR LYMPH NODE COMPLEX CLINICAL HISTORY: Right sided supraclavicular lymphadenopathy. Excision of deep cervical lymph node. FINAL PATHOLOGIC DIAGNOSIS: Right supraclavicular lymph node complex, excision: - Metastatic ductal carcinoma. COMMENT: The carcinoma is morphologically similar to the previous left breast invasive ductal carcinoma ([id number]) and right axillary metastatic ductal carcinoma (VS-22-50). The carcinoma in the current excision specimen exists as multiple nodules within fibroadipose tissue. Some of the nodules are surrounded by a capsule and contain intermixed lymphoid parenchyma and are therefore favored to represent lymph nodes expanded and near-totally replaced with metastatic carcinoma. As part of [facility] Technical Inspector Program, this case was reviewed by another member of our pathology staff. NAL:cml:C1NR MICROSCOPIC EXAMINATION: Histologic sections of all submitted blocks are examined by light microscopy. These findings, together with the gross examination, support the pathologic diagnosis. GROSS DESCRIPTION: The specimen, labeled "MH, right supraclavicular lymph node complex," is received in formalin and consists of irregular shaped, yellow-nugent fibroadipose tissue fragments that aggregate measure 9.5 x 5.5 x 2.2 cm. Sectioning through the specimen reveals three possible lymph nodes that range in size from 0.8-4.5 cm in diameter. Sectioning through the possible lymph node reveals yellow-pink, lobulated surface. Cassette Summary: (A1-A4) First possible lymph node, accounts payable representative sections PATIENT NAME: SOPHIE BALDERAS PATHOLOGY DATE OF : 44 REPORT #: [id number] PHYSICIAN: MELVIN LUNA PCP: JOSE LOVELL PAC REPORT IS CONFIDENTIAL AND NOT TO BE RELEASED WITHOUT AUTHORIZATION [facility] [address] [place] [address] Signed (A5-A8) Second possible lymph node, accounts payable representative sections (A9) One possible lymph node, inked, bisected, entirely submitted and several tissue fragments, accounts payable representative sections JS (under the direct supervision of a pathologist) The Gross Description was prepared using a voice recognition system. The report was reviewed for accuracy; however, sound-alike word errors, addition and/or deletions may occur. If there is any question about this report, please contact Client Services. PERFORMING LABORATORY: The technical component was performed by [facility], [address] [place] [address] (Optoelectronic Technician: Anahy Wilson MD; CLIA# [id number]).[facility] [address] [place] [address] (CLIA# [id number]). Diagnostician: Ember Reeves MD Pathologist Electronically Signed 10/20/2021 Copies: ~ PATIENT NAME: SOPHIE BALDERAS PATHOLOGY DATE OF : 44 REPORT #: [id number] PHYSICIAN: MELVIN LUNA PCP: JOSE LOVELL PAC REPORT IS CONFIDENTIAL AND NOT TO BE RELEASED WITHOUT AUTHORIZATION
== END 2021-10-18 13:25 | disposition home or self-care (01) | DRG 822 ==
LOC: DS 05:58 → MS 12:10 → DS 12:37 → MS 12:37
PROVIDERS: ADMIT Surgery; ATTEND Surgery
PROC: 07T10ZZ Resection of Right Neck Lymphatic, Open Approach (ICD-10-PCS; principal; 2021-10-17 07:00)
DX: C77.3 Secondary and unspecified malignant neoplasm of axilla and upper limb lymph nodes (principal); C50.911 Malignant neoplasm of unspecified site of right female breast; Z20.822 Contact with and (suspected) exposure to COVID-19; Z88.1 Allergy status to other antibiotic agents; Z88.8 Allergy status to other drugs, medicaments and biological substances; Z79.2 Long term (current) use of antibiotics; Z79.82 Long term (current) use of aspirin; Z79.899 Other long term (current) drug therapy
CPT/HCPCS: 00404; 36415; 71045; 85025; 86850; 86900; 86901; 88305; 93005; 93010; A9270; J0690; J1100; J1644; J1790; J1885; J2001; J2370; J2405; J2704; J3010; J7121

== ENCOUNTER 2021-11-10 20:07 | Observation (INO) | payer MEDICARE, OTHER ==
[~2021-11-10] VITALS: Ht 154.9 cm; Wt 77.5 kg
[~2021-11-10 20:07] MED LIST changes: +OXYCODON-ACETA1 EAC2 PO
[2021-11-10] MEDS ORDERED: ONDANSETRON ODT8 MG PO (20:36)
--- NOTE | 2021-11-11 15:58 | EKG ---
[facility] [address] [facility] [place] [address] Signed Atrial fibrillation Incomplete right bundle branch block Inferior infarct (cited on or before 17-OCT-2021) Abnormal ECG When compared with ECG of 17-OCT-2021 12:38, Incomplete right bundle branch block is now present Confirmed by DAVID ZAMBRANO MD ([id number]) on 11/11/2021 3:57:56 PM Electronically Signed By: DAVID ZAMBRANO MD 11/11/21 1558 PATIENT NAME: SOPHIE BALDERAS Electrocardiogram DATE OF : 44 PHYSICIAN: DAVID ZAMBRANO MD REPORT #: [id number] REPORT IS CONFIDENTIAL AND NOT TO BE RELEASED WITHOUT AUTHORIZATION
== END 2021-11-11 16:45 ==
LOC: ED 20:07 → MS 20:09
PROVIDERS: ADMIT Internal Medicine; ATTEND Internal Medicine
DX: N17.9 Acute kidney failure, unspecified (principal); E87.5 Hyperkalemia; I95.9 Hypotension, unspecified; R65.10 Systemic inflammatory response syndrome (SIRS) of non-infectious origin without acute organ dysfunction; K72.00 Acute and subacute hepatic failure without coma; I48.91 Unspecified atrial fibrillation; C50.919 Malignant neoplasm of unspecified site of unspecified female breast; C78.7 Secondary malignant neoplasm of liver and intrahepatic bile duct; C78.00 Secondary malignant neoplasm of unspecified lung; D63.0 Anemia in neoplastic disease; Z51.5 Encounter for palliative care; Z92.21 Personal history of antineoplastic chemotherapy; Z90.11 Acquired absence of right breast and nipple; Z87.891 Personal history of nicotine dependence; Z20.822 Contact with and (suspected) exposure to COVID-19
CPT/HCPCS: 36415; 71045; 74176; 80053; 81001; 83605; 83690; 85025; 85610; 85730; 93005; 93010; 93926; C9803; J1170; J2060; J2405; J2997; J7030; U0003